=== PATIENT | male | born 1980 ===

== ENCOUNTER 2018-10-04 12:03 | Emergency (ER) | payer OTHER ==
[2018-10-04 12:16] VITALS: PULSE 78; RESP 18; TEMP 99.1; O2SAT 98
--- NOTE | 2018-10-04 13:16 | ED PDOC ---
Arrival/HPI - History of Present Illness Narrative History of Present Illness (Text): 10/04/18 13:11 38M with a PMHx of sebaceous cysts and pilonydal cyst presents with a 6mo hx an enlarging cyst in the xyphoid region. Pt says its been gradually growing but yesterday after hugging a family member it began to hurt. Pt also reports minor redness. ROS: Pos+ pain on palpation, enlarging Neg- fevers, chills, sob, night sweats, vomiting, trauma, skin break 10/04/18 13:16 <Roberth Sharp - Last Filed: 10/04/18 15:29> - General Historian: Patient - History of Present Illness Time/Duration: > month Symptom Course: Worsening Quality: Pressure Activities at Onset: Light Context: Home <Joshua Cordon - Last Filed: 10/08/18 19:26> - General Chief Complaint: Abnormal Skin Integrity Time Seen by Provider: 10/04/18 12:41 Past Medical History - Provider Review Nursing Documentation Reviewed: Yes - Patient History Narrative Patient History: pilonydal cyst sebaceous cyst - Psychiatric Hx Substance Use: No - Surgical History Other/Comment: facial reconstruction - Anesthesia Hx Anesthesia: Yes Hx Anesthesia Reactions: No Hx Malignant Hyperthermia: No <Roberth Sharp - Last Filed: 10/04/18 15:29> Family/Social History Family/Social History: Unknown Family HX Smoking Status: Never Smoked Hx Alcohol Use: Yes Frequency of alcohol use: Socially Hx Substance Use: No <Roberth Sharp - Last Filed: 10/04/18 15:29> - Physician Review Nursing Documentation Reviewed: Yes Family/Social History: No Known Family HX <Joshua Cordon - Last Filed: 10/08/18 19:26> Allergies/Home Meds <Roberth Sharp - Last Filed: 10/04/18 15:29> <Joshua Cordon - Last Filed: 10/08/18 19:26> Allergies/Adverse Reactions: Allergies No Known Allergies Allergy (Verified 10/04/18 12:08) Review of Systems - Physician Review All systems were reviewed & negative as marked: Yes - Review of Systems Constitutional: absent: Fevers, Night Sweats Eyes: absent: Vision Changes Respiratory: absent: SOB Cardiovascular: absent: Chest Pain Gastrointestinal: absent: Abdominal Pain Genitourinary Male: absent: Dysuria, Hematuria Musculoskeletal: absent: Back Pain Skin: Other (cyst, enlarging, painful) Neurological: absent: Headache, Dizziness Endocrine: absent: Diaphoresis <Roberth Sharp - Last Filed: 10/04/18 15:29> Physical Exam Vital Signs Temp Pulse Resp BP Pulse Ox 10/04/18 12:05 99.1 F 78 18 131/89 98 Temperature: Afebrile Blood Pressure: Normal Pulse: Regular Respiratory Rate: Normal Appearance: Positive for: Well-Appearing, Non-Toxic, Comfortable Pain Distress: None Mental Status: Positive for: Alert and Oriented X 3 - Systems Exam Head: Present: Atraumatic, Normocephalic Pupils: Present: PERRL Extroacular Muscles: Present: EOMI, Gaze Palsy Conjunctiva: Present: Normal Mouth: Present: Moist Mucous Membranes Pharnyx: No: ERYTHEMA Respiratory/Chest: Present: Clear to Auscultation. No: Wheezes, Rhonchi Cardiovascular: Present: Regular Rate and Rhythm, Normal S1, S2. No: Murmurs Abdomen: Present: Normal Bowel Sounds. No: Tenderness, Distention Upper Extremity: Present: Normal Inspection, NORMAL PULSES Lower Extremity: Present: Normal Inspection Neurological: Present: GCS=15, CN II-XII Intact Skin: Present: Other (xyphoid region, 5x5cm circular, tender, non fixed, mobile, irregular oblong border palpated on left inferolateral portion ) Psychiatric: Present: Alert, Oriented x 3 <Roberth Sharp - Last Filed: 10/04/18 15:29> Vital Signs Reviewed: Yes Vital Signs Temp Pulse Resp BP Pulse Ox 10/04/18 12:05 99.1 F 78 18 131/89 98 <Joshua Cordon - Last Filed: 10/08/18 19:26> Medical Decision Making ED Course and Treatment: 10/04/18 13:27 f/u soft tissue US - RAD Interpretation Radiology Orders: 10/04/18 13:05 US SOFT TISSUE COMPLETE [US] Routine <Roberth Sharp - Last Filed: 10/04/18 15:29> ED Course and Treatment: 10/04/18 17:20 Patient Seen with Resident: In agreement with resident note which contains more details about the patient. Patient seen and evaluated with resident. Came up with plan and treatment together. Impression: 38 year old male who presents to the emergency department complaining of cyst on his chest. 10/08/18 19:22 i have personally seen and examined by myself. patient presents with a very mildly tender lesion on the anterior mid lower sternum. the lesion had clear borders and clinically had the feel of a cyst. US was done to rule out abscess as the lesion was somewhat tender. US revealed a solid mass. I explained to the patient the extreme importance to have the lesion biopsied. I offered to the patient to have my surgeon on staff to evaluate patient. The patient states he would rather go back home (out of state), and he will see a surgeon there. Patient stated that his insurance only covers emergency visits which was his reluctance to undergo further evaluation. Patient understood and agreed to follow up with surgeon. Copy of US report was given at discharge. - RAD Interpretation Radiology Orders: 10/04/18 13:32 US SOFT TISSUE COMPLETE [US] Stat <Joshua Cordon - Last Filed: 10/08/18 19:26> - Scribe Statement The provider has reviewed the documentation as recorded by the Amairaniibe Jayshree Shaver Provider Scribe Attestation: All medical record entries made by the Scribe were at my direction and personally dictated by me. I have reviewed the chart and agree that the record accurately reflects my personal performance of the history, physical exam, medical decision making, and the department course for this patient. I have also personally directed, reviewed, and agree with the discharge instructions and disposition. <Joshua Cordon - Last Filed: 10/08/18 19:26> Disposition/Present on Arrival - Present on Arrival History of DVT/PE: No History of Uncontrolled Diabetes: No Urinary Catheter: No History of Decub. Ulcer: No History Surgical Site Infection Following: None - Disposition Patient Plan: Discharge <Roberth Sharp - Last Filed: 10/04/18 15:29> - Present on Arrival Any Indicators Present on Arrival: No - Disposition Have Diagnosis and Disposition been Completed?: Yes Disposition Time: 14:56 Patient Plan: Discharge <Joshua Cordon - Last Filed: 10/08/18 19:26> - Disposition Diagnosis: Soft tissue mass Disposition: HOME/ ROUTINE Condition: STABLE Additional Instructions: You must follow up with a surgeon to have the mass evaluated, most likely thr ough removal and biopsy. Return for any new or worsening symptoms. CATHY THOMAS, thank you for letting us take care of you today. Your provider was Dr. Joshua Cordon and you were treated for soft tissue mass. The emergency medical care you received today was directed at your acute symptoms. If you were prescribed any medication, please fill it and take as directed. It may take several days for your symptoms to resolve. Return to the Emergency Department if your symptoms worsen, do not improve, or if you have any other problems. Please contact your doctor or call one of the physicians/clinics you have been referred to that are listed on the Patient Visit Information form that is included in your discharge packet. Bring any paperwork you were given at discharge with you along with any medications you are taking to your follow up visit. Our treatment cannot replace ongoing medical care by a primary care provider outside of the emergency department. Thank you for allowing the [facility] team to be part of your care today. If you had an X-Ray or CT scan: A Radiologist will review the ED reading if any change in treatment is needed we will contact you. If you had a blood, urine, or wound culture: It will take several days for the results, if any change in treatment is needed we will contact you. If you had an STI test: It will take 48 hours for the results. Please call after 1 week if you have not heard back. Prescriptions: Cephalexin [Keflex] 500 mg PO Q6H #28 capsule Referrals: PCP,NO [Primary Care Provider] - Follow up with primary [facility] [Outside] - Follow up with primary Forms: [employer] (Burmese)
--- NOTE | 2018-10-04 14:14 | US ---
Date of service: 10/04/2018 PROCEDURE: Soft tissue ultrasound HISTORY: abscess vs cyst, chest wall COMPARISON: TECHNIQUE: FINDINGS: There is a solid soft tissue mass anterior to the sternum measuring 4.4 x 2.2 x 4.0 cm. The etiology of this mass is uncertain. This is an unusual location for adenopathy. IMPRESSION: Solid mass anterior to the sternum.
[2018-10-04 15:01] VITALS: BP 128/78
== END 2018-10-04 15:11 | disposition home or self-care (01) ==
LOC: ED 12:03
DX: L72.3 Sebaceous cyst (principal)

== ENCOUNTER 2018-10-16 16:54 | Observation (INO) | payer OTHER ==
[2018-10-16 16:58] VITALS: BMI 28.8
--- NOTE | 2018-10-16 17:22 | ED PDOC ---
Arrival/HPI - General Chief Complaint: Abnormal Skin Integrity Time Seen by Provider: 10/16/18 16:58 - History of Present Illness Narrative History of Present Illness (Text): 10/16/18 17:17 38 m with no significant pmhx presents to the ED with an expanding and painful mass on the sternum. Patient was seen in the ED on 10.04.2018 for the same but the mass was smaller, mildly painful. Patient states over the course since last visit the mass has expanded in size, noticed redness around the skin, he attempted to squeeze once day and noticed a foul smelling odor from the purulent discharge. Patient denies fever or chills or any other systemic complaints. Patient was compliant with the antibiotic he was prescribed. Past Medical History - Psychiatric Hx Substance Use: No - Surgical History Other/Comment: facial reconstruction - Anesthesia Hx Anesthesia: Yes Hx Anesthesia Reactions: No Hx Malignant Hyperthermia: No Family/Social History Family/Social History: No Known Family HX Smoking Status: Never Smoked Hx Alcohol Use: Yes Frequency of alcohol use: Socially Hx Substance Use: No Allergies/Home Meds Allergies/Adverse Reactions: Allergies No Known Allergies Allergy (Verified 10/16/18 17:04) Home Medications: Home Meds Medication Instructions Recorded Confirmed No Known Home Med 10/16/18 10/16/18 Review of Systems - Physician Review All systems were reviewed & negative as marked: Yes Physical Exam - Physical Exam Narrative Physical Exam (Text): 10/16/18 17:23 Gen: VS reviewed, alert, well developed, well nourished, nontoxic, mild distress Eye: EOMI, PERRL Neck: no JVD, supple, no adenopathy CV: regular rate, regular rhythm, no rubs,no murmur, S1, S2 Pulm: no distress, clear to auscultation, no wheeze, no rhonchi, breath sounds equal, no rales Chest: there is a large fluctuant mass on the anterior lower sternum which is tender to touch, there is mild redness on the borders of the mass, there is no open skin with drainage at this time Skin: good color, no rash, no cyanosis Psych: responds appropriately to questions, normal affect Neuro: oriented x3, CN2-12 intact grossly, motor intact, sensation intact Vital Signs Temp Pulse Resp BP Pulse Ox 10/16/18 16:56 99.0 F 90 18 169/93 H 98 Medical Decision Making ED Course and Treatment: 10/16/18 17:25 patient presents with expanding mass of the lower sternum, recent US described as a solid mass. patient was referred to general surgeon for potential resection and biopsy but the characteristics of the mass appear to have evolved. 10/16/18 17:15 case discussed with [place], will come to ED for evaluation 10/16/18 19:09 admit accepted to service of dr. sam bucio, patient to go to OR for surgical resection of soft tissue mass which appears to be infected. i feel it is entirely appropriate for in hospital treatment considering that the soft tissue mass is located over the sternum and delay in further treatment may result in sternum infection. 10/16/18 19:11 Disposition/Present on Arrival - Present on Arrival Any Indicators Present on Arrival: No History of DVT/PE: No History of Uncontrolled Diabetes: No Urinary Catheter: No History of Decub. Ulcer: No History Surgical Site Infection Following: None - Disposition Have Diagnosis and Disposition been Completed?: Yes Diagnosis: Soft tissue infection Disposition: HOSPITALIZED Disposition Time: 19:10 Patient Plan: Admission Patient Problems: Current Active Problems Problem Status Onset Soft tissue infection Acute Condition: STABLE Forms: Sik[employer] (Slovak)
--- NOTE | 2018-10-16 18:08 | CP.PCM.CON ---
History of Present Illness - History of Present Illness History of Present Illness: Surgery Consult Note. Dr. Carrington service. 38yo M with no significant PMHx here for evaluation of mid lower sternal mass. Patient states that he has had this mass for approximately 6-8 months and it has gradually gotten larger in size. He states that he did not have any pain initially but as the mass started to grow larger, he started to have pain upon palpation. He came into the ED for evaluation on 10/04/18 as he started to have increased pain and redness to the area. He had an US performed which showed a solid mass approximately 4.4cm x 2cm x 4cm mass. He was discharged home with a 7-day course of keflex 500mg PO q6h with which he was compliant. He states that approximately a week ago, he noted some thick malodorous brown drainage from the site which has since stopped. Today, he noted increased redness and tenderness to the area and came back to the ED for further evaluation. General Surgery Consult was obtained. PMD: In [place] ([id number]) PMHx: Denies PSHx: Denies Family hx: non-contributory Social Hx: Denies Tobacco use; Rare social ETOH use; Denies any illicit drugs. Lives [id number] in [place] NKDA Review of Systems - Review of Systems All systems: reviewed and no additional remarkable complaints except - Constitutional Constitutional: absent: Fever - EENT Eyes: absent: Blurred Vision Past Patient History - Past Social History Smoking Status: Never Smoked - PSYCHIATRIC Hx Substance Use: No - SURGICAL HISTORY Other/Comment: facial reconstruction - ANESTHESIA Hx Anesthesia: Yes Hx Anesthesia Reactions: No Hx Malignant Hyperthermia: No Meds Allergies/Adverse Reactions: Allergies Allergy/AdvReac Type Severity Reaction Status Date / Time No Known Allergies Allergy Verified 10/16/18 17:04 Results - Vital Signs Recent Vital Signs: Last Vital Signs Temp 99.0 F 10/16/18 16:56 Pulse 90 10/16/18 16:56 Resp 18 10/16/18 16:56 BP 169/93 H 10/16/18 16:56 Pulse Ox 98 10/16/18 16:56
--- NOTE | 2018-10-16 18:46 | CP.PCM.HP ---
<Ascencion Marcano - Last Filed: 10/16/18 18:43> History of Present Illness - History of Present Illness History of Present Illness: Surgery H&P Note. Dr. Carrington service. 38yo M with no significant PMHx here for evaluation of mid lower sternal mass. Patient states that he has had this mass for approximately 6-8 months and it has gradually gotten larger in size. He states that he did not have any pain initially but as the mass started to grow larger, he started to have pain upon palpation. He came into the ED for evaluation on 10/04/18 as he started to have increased pain and redness to the area. He had an US performed which showed a solid mass approximately 4.4cm x 2cm x 4cm. He was discharged home with a 7-day course of keflex 500mg PO q6h with which he was compliant. He states that approximately a week ago, he noted some thick malodorous brown drainage from the site which has since stopped. Today, he noted increased redness and tenderness to the area and came back to the ED for further evaluation. He denies any fevers or chills. No N/V/D. No CP/SOB. No Abd pain. No urinary complaints. PMD: In [place] ([id number]) PMHx: Denies PSHx: Denies Family hx: non-contributory Social Hx: Denies Tobacco use; Rare social ETOH use; Denies any illicit drugs. Lives [id number] in [place] NKDA Present on Admission - Present on Admission Any Indicators Present on Admission: No Review of Systems - Review of Systems All systems: reviewed and no additional remarkable complaints except - Constitutional Constitutional: absent: Chills, Fever - EENT Eyes: absent: Blurred Vision, Change in Vision Nose/Mouth/Throat: absent: Epistaxis, Nasal Discharge - Cardiovascular Cardiovascular: absent: Chest Pain, Diaphoresis, Dyspnea - Respiratory Respiratory: absent: Cough, Dyspnea - Gastrointestinal Gastrointestinal: absent: Abdominal Pain, Diarrhea, Nausea, Vomiting - Genitourinary Genitourinary: absent: Dysuria - Musculoskeletal Musculoskeletal: absent: Back Pain, Neck Pain - Integumentary Integumentary: Lesions Additional comments: chest wall lesion - Neurological Neurological: absent: Dizziness - Psychiatric Psychiatric: absent: Anhedonia, Anxiety Past Patient History - Past Medical History & Family History Past Medical History?: No Past Family History: Reviewed and not pertinent - Past Social History Smoking Status: Never Smoked Alcohol: Occasional Drugs: Denies - PSYCHIATRIC Hx Substance Use: No - SURGICAL HISTORY Other/Comment: facial reconstruction - ANESTHESIA Hx Anesthesia: Yes Hx Anesthesia Reactions: No Hx Malignant Hyperthermia: No Meds Allergies/Adverse Reactions: Allergies Allergy/AdvReac Type Severity Reaction Status Date / Time No Known Allergies Allergy Verified 10/16/18 17:04 Physical Exam - Constitutional Appears: Well, Non-toxic, No Acute Distress - Head Exam Head Exam: ATRAUMATIC, NORMAL INSPECTION, NORMOCEPHALIC - Eye Exam Eye Exam: EOMI, Normal appearance. absent: Scleral icterus - ENT Exam ENT Exam: Mucous Membranes Moist - Respiratory Exam Respiratory Exam: NORMAL BREATHING PATTERN. absent: Accessory Muscle Use, Re spiratory Distress - Cardiovascular Exam Cardiovascular Exam: RRR. absent: JVD - GI/Abdominal Exam GI & Abdominal Exam: Soft. absent: Distended, Firm, Guarding, Rebound, Rigid, Tenderness - Extremities Exam Extremities exam: Positive for: normal inspection. Negative for: calf ten derness - Neurological Exam Neurological exam: Alert, Oriented x3 - Psychiatric Exam Psychiatric exam: Normal Affect, Normal Mood - Skin Additional comments: Midline chest wall lesion approximately 5cm x 5cm raised area. With surrounding erythema. No active drainage. +Fluctuance. Tender to palpation. Results - Vital Signs Recent Vital Signs: Last Vital Signs Temp 99.0 F 10/16/18 16:56 Pulse 90 10/16/18 16:56 Resp 18 10/16/18 16:56 BP 169/93 H 10/16/18 16:56 Pulse Ox 98 10/16/18 16:56 Assessment & Plan - Assessment and Plan (Free Text) Assessment: 38yo M with infected chest wall mass Plan: - IV Abx - NPO past midnight - To OR for I&D vs. excision of chest wall mass tomorrow, 10/17/18 - Pain management Further recs as per Dr. Peter Marcano PGY2 surgery <Odalys Carrington - Last Filed: 10/17/18 11:06> Results - Vital Signs Recent Vital Signs: Last Vital Signs Temp 98.4 F 10/17/18 06:00 Pulse 91 H 10/17/18 06:00 Resp 20 10/17/18 06:00 BP 129/81 10/17/18 06:00 Pulse Ox 99 10/17/18 06:00 - Labs Result Diagrams: 10/17/18 06:10 10/16/18 19:19 Labs: Laboratory Results - last 24 hr 10/16/18 10/16/18 10/16/18 19:19 19:19 19:19 WBC 14.9 H RBC 5.03 Hgb 15.4 Hct 43.8 MCV 87.1 MCH 30.6 MCHC 35.2 RDW 12.6 Plt Count 285 MPV 9.5 Gran % 72.5 H Lymph % (Auto) 17.7 L [place] % (Auto) 6.8 H Eos % (Auto) 2.7 Baso % (Auto) 0.3 Gran # 10.79 H Lymph # (Auto) 2.6 [place] # (Auto) 1.0 H Eos # (Auto) 0.4 Baso # (Auto) 0.05 PT 11.4 INR 1.00 APTT 28.0 Sodium 139 Potassium 3.9 Chloride 107 Carbon Dioxide 25 Anion Gap 11 BUN 13 Creatinine 0.7 L Est GFR ( Amer) > 60 Est GFR (Non-Af Amer) > 60 Random Glucose 90 Calcium 9.1 10/17/18 06:10 WBC 16.9 H RBC 4.88 Hgb 14.8 Hct 42.9 MCV 87.9 MCH 30.3 MCHC 34.5 RDW 12.7 Plt Count 282 MPV 10.0 Gran % 74.3 H Lymph % (Auto) 17.0 L [place] % (Auto) 6.0 Eos % (Auto) 2.3 Baso % (Auto) 0.4 Gran # 12.56 H Lymph # (Auto) 2.9 [place] # (Auto) 1.0 H Eos # (Auto) 0.4 Baso # (Auto) 0.07 PT INR APTT Sodium Potassium Chloride Carbon Dioxide Anion Gap BUN Creatinine Est GFR ( Amer) Est GFR (Non-Af Amer) Random Glucose Calcium Assessment & Plan - Assessment and Plan (Free Text) Plan: Patient seen and examined independent of resident staff. Imaging and reports personally reviewed. Agree with above assessment and plan. Chest wall soft tissue infected mass, likely sebaceous cyst. Recommend excision of mass, and drainage of wound under MAC/local anesthesia. Risks and benefits discussed including, bleeding, infection, recurrence, and delayed wound healing. Patient understands these risks and informed consent signed at bedside.
[2018-10-16] MEDS: Clindamycin 600mg/50ml D5W 600 MG/50 ML VIAL IVPB SCH (19:23)
[2018-10-16 19:32] LABS: BASO # 0.05 K/mm3 (0.0-2.0); BASO % 0.3 % (0.0-3.0); BLOOD UREA NITROGEN 13 mg/dL (7-21); CALCIUM 9.1 mg/dL (8.4-10.5); EOS # 0.4 (0.0-0.7); EOS % 2.7 % (1.5-5.0); GFR NON-AFRICAN AMERICAN > 60; GRAN # 10.79 (1.4-6.5); GRAN % 72.5 % (50.0-68.0); HEMOGLOBIN 15.4 g/dL (14.0-18.0); LYMPH # 2.6 (1.2-3.4); LYMPH % 17.7 % (22.0-35.0); MEAN CELL VOLUME 87.1 fl (80.0-105.0); MEAN CORPUSCULAR HEMOGLOBIN 30.6 pg (25.0-35.0); MEAN CORPUSCULAR HGB CONC 35.2 g/dl (31.0-37.0); MEAN PLATELET VOLUME 9.5 fl (7.0-11.0); MONO % 6.8 % (1.0-6.0); RBC 5.03 10^6/uL (3.5-6.1); RED CELL DISTRIBUTION WIDTH 12.6 % (11.5-14.5); WHITE BLOOD COUNT 14.9 10^3/uL (4.5-11.0)
[2018-10-16 19:33] LABS: PROTHROMBIN TIME 11.4 SECONDS (9.4-12.5)
[2018-10-17] MEDS ORDERED: Sodium Chloride 0.9% 1,000 ML IV SCH (05:15)
[2018-10-17] MEDS: Clindamycin 600mg/50ml D5W 600 MG/50 ML VIAL IVPB SCH ×2 (05:49→14:25)
[2018-10-17 06:43] LABS: BASO # 0.07 K/mm3 (0.0-2.0); BASO % 0.4 % (0.0-3.0); EOS # 0.4 (0.0-0.7); EOS % 2.3 % (1.5-5.0); GRAN # 12.56 (1.4-6.5); GRAN % 74.3 % (50.0-68.0); HEMOGLOBIN 14.8 g/dL (14.0-18.0); LYMPH # 2.9 (1.2-3.4); MEAN CELL VOLUME 87.9 fl (80.0-105.0); MEAN CORPUSCULAR HEMOGLOBIN 30.3 pg (25.0-35.0); MEAN CORPUSCULAR HGB CONC 34.5 g/dl (31.0-37.0); RBC 4.88 10^6/uL (3.5-6.1); RED CELL DISTRIBUTION WIDTH 12.7 % (11.5-14.5); WHITE BLOOD COUNT 16.9 10^3/uL (4.5-11.0)
[2018-10-17] MEDS ORDERED: Lidocaine 1% Inj (20ml) ONE (10:57)
[2018-10-17] MEDS ORDERED: Bupivacaine 0.5% 50 ML IJ ONE (10:57)
[2018-10-17] MEDS ORDERED: Bupivacaine 0.25% 50 ML INJ IJ ONE (10:57)
[2018-10-17] MEDS ORDERED: Sodium Chloride 0.9% 10 ML IV ONE (10:58)
[2018-10-17] MEDS ORDERED: Propofol 10 mg/ml Inj (20 ML) ONE ×2 (11:10→11:38)
[2018-10-17] MEDS ORDERED: Midazolam 2 MG/2 ML VIAL ONE (11:11)
[2018-10-17] MEDS ORDERED: Lidocaine 1% w Epi 1:100,000 Inj ONE (11:14)
[2018-10-17] MEDS ORDERED: Lidocaine PF 2% (5 ml) Inj (For Cardiac Arrhy) ONE (11:18)
[2018-10-17 12:03] VITALS: TEMP 98.8
--- NOTE | 2018-10-17 13:46 | PCM.SURG1 ---
Surgeon's Initial Post Op Note - Surgeon's Notes Surgeon: Dr. Carrington Juke Box Servicer: PGY2 Type of Anesthesia: IV Sedation, Local Pre-Operative Diagnosis: Anterior chest wall mass Operative Findings: purulent drainage. for details see op note Post-Operative Diagnosis: Infected sebaceous cyst of anterior chest Operation Performed: Excision of infected sebaceous cyst Specimen/Specimens Removed: 1. Cyst Capsule. 2. Culture of wound Estimated Blood Loss: EBL {In ML}: 3 Post-Op Condition: Good Date of Surgery/Procedure: 10/17/18 Time of Surgery/Procedure: 12:15
[2018-10-17 14:59] VITALS: BP 126/85; PULSE 73; RESP 19; O2SAT 98
--- NOTE | 2018-10-17 15:16 | CP.PCM.DIS ---
Provider - Provider Date of Admission: 10/16/18 19:10 Attending physician: Odalys Carrington MD Time Spent in preparation of Discharge (in minutes): 40 Hospital Course - Lab Results Lab Results: Most Recent Lab Values WBC 16.9 10^3/uL (4.5-11.0) H 10/17/18 06:10 RBC 4.88 10^6/uL (3.5-6.1) 10/17/18 06:10 Hgb 14.8 g/dL (14.0-18.0) 10/17/18 06:10 Hct 42.9 % (42.0-52.0) 10/17/18 06:10 MCV 87.9 fl (80.0-105.0) 10/17/18 06:10 MCH 30.3 pg (25.0-35.0) 10/17/18 06:10 MCHC 34.5 g/dl (31.0-37.0) 10/17/18 06:10 RDW 12.7 % (11.5-14.5) 10/17/18 06:10 Plt Count 282 10^3/uL (120.0-450.0) 10/17/18 06:10 MPV 10.0 fl (7.0-11.0) 10/17/18 06:10 Gran % 74.3 % (50.0-68.0) H 10/17/18 06:10 Lymph % (Auto) 17.0 % (22.0-35.0) L 10/17/18 06:10 Turner % (Auto) 6.0 % (1.0-6.0) 10/17/18 06:10 Eos % (Auto) 2.3 % (1.5-5.0) 10/17/18 06:10 Baso % (Auto) 0.4 % (0.0-3.0) 10/17/18 06:10 Gran # 12.56 (1.4-6.5) H 10/17/18 06:10 Lymph # (Auto) 2.9 (1.2-3.4) 10/17/18 06:10 Turner # (Auto) 1.0 (0.1-0.6) H 10/17/18 06:10 Eos # (Auto) 0.4 (0.0-0.7) 10/17/18 06:10 Baso # (Auto) 0.07 K/mm3 (0.0-2.0) 10/17/18 06:10 PT 11.4 SECONDS (9.4-12.5) 10/16/18 19:19 INR 1.00 10/16/18 19:19 APTT 28.0 Seconds (25.1-36.5) 10/16/18 19:19 Sodium 139 mmol/L (132-148) 10/16/18 19:19 Potassium 3.9 mmol/L (3.6-5.0) 10/16/18 19:19 Chloride 107 mmol/L (98-107) 10/16/18 19:19 Carbon Dioxide 25 mmol/L (21-33) 10/16/18 19:19 Anion Gap 11 (10-20) 10/16/18 19:19 BUN 13 mg/dL (7-21) 10/16/18 19:19 Creatinine 0.7 mg/dl (0.8-1.5) L 10/16/18 19:19 Est GFR ( Amer) > 60 10/16/18 19:19 Est GFR (Non-Af Amer) > 60 10/16/18 19:19 Random Glucose 90 mg/dL (70-110) 10/16/18 19: Calcium 9.1 mg/dL (8.4-10.5) 10/16/18 19:19 - Hospital Course Hospital Course: 38yo M with no significant PMHx here for evaluation of mid lower sternal mass. Patient states that he has had this mass for approximately 6-8 months and it has gradually gotten larger in size. He states that he did not have any pain initially but as the mass started to grow larger, he started to have pain upon palpation. He came into the ED for evaluation on 10/04/18 as he started to have increased pain and redness to the area. He had an US performed which showed a solid mass approximately 4.4cm x 2cm x 4cm. He was discharged home with a 7-day course of keflex 500mg PO q6h with which he was compliant. He states that approximately a week ago, he noted some thick malodorous brown drainage from the site which has since stopped. Today, he noted increased redness and tenderness to the area and came back to the ED for further evaluation. Decision was made to go to the operating room or excision of chest wall infected cyst. Patient had copious amounts of purulent and malodrous drainage from the infected cyst. Patient tolerated procedure well. Now cleared for discharge home with BID packing changes. Details given in discharge packet. Discharge Exam - Head Exam Head Exam: ATRAUMATIC, NORMAL INSPECTION, NORMOCEPHALIC - Eye Exam Eye Exam: EOMI. absent: Scleral icterus - ENT Exam ENT Exam: Mucous Membranes Dry, Mucous Membranes Moist - Respiratory Exam Respiratory Exam: NORMAL BREATHING PATTERN. absent: Accessory Muscle Use, Wheezes, Respiratory Distress Additional comments: anterior abdominal wall dressing C/D/I - Cardiovascular Exam Cardiovascular Exam: +S1, +S2. absent: Bradycardia, Tachycardia - GI/Abdominal Exam GI & Abdominal Exam: Soft. absent: Diminished Bowel Sounds, Distended, Firm, Guarding, Hernia - Extremities Exam Extremities exam: normal inspection - Neurological Exam Neurological exam: Alert, Oriented x3 - Psychiatric Exam Psychiatric exam: Normal Affect - Skin Skin Exam: Intact, Warm Discharge Plan - Discharge Medications Prescriptions: Clindamycin [Cleocin] 300 mg PO Q6H 7 Days cap Ibuprofen [Motrin Tab] 600 mg PO Q6 5 Days tab Sennosides/Docusate Sodium [Colace 2-in-1 Tablet] 1 each PO BID #30 tablet - Follow Up Plan Condition: STABLE Disposition: HOME/ ROUTINE Additional Instructions: Packing Changes 2 times per day for the first 5 days. In the morning remove packing and shower. Allowed to get water into the wound and use soap only on the outside. After shower pat dry the area and use the krillex roll, soak with normal saline and wring saline out well. Then pack wound around the edges. Each day can use less krillex in the packing. Continue to take antibiotics and other meds as prescribed. Follow up in 5 days in office. If fever greater than 100.4 take Tylenol. If fever persists to the the ER Referrals: Odalys Carrington MD [Staff Provider] - 7 Days
--- NOTE | 2018-10-24 11:05 | PCM.OP ---
Operative Report - Operative Report Date of Surgery/Procedure: 10/17/18 Time of Surgery/Procedure: 09:00 Surgeon: Odalys Carrington MD Laborer Brush Clearing: Amanda Herndon DO (PGY 2 resident) Anesthesia/Sedation: See main Pre-Operative Diagnosis: See main Post-Operative Diagnosis: See main Indication for Surgery: See main Operative Findings: See main Procedure/Operation Description: ANESTHESIA: MAC/LMA; 1% lidocaine with epinephrine+ 0.25% marcarine local PREOPERATIVE DIAGNOSIS: infected chest wall cyst POSTOPERATIVE DIAGNOSIS: Infected chest wall sebaceous cyst GROSS FINDINGS: Thick white purulent and foul smelling debris evacuated from chest wall cyst cavity, 60mL or more in total. Cyst wall removed down to anterior fascia. No deeper muscle involvement. INDICATION: The patient is a 38 year old female with chest wall mass and pain and US evidence of solid component mass performed a week earlier on previous ED visit. Now with increased pain and worsening surrounding skin erythema. Details of HPI as documented in patients chart. All potential risks, benefits, and complications of the procedure were discussed with the patient, and informed consent was obtained prior to the operation. PROCEDURE PERFORMED: Incision and drainage (I&D) of chest wall abscess; Excision of sebaceous cyst cavity. DETAILS OF OPERATION: Patient was taken to operating room and placed supine on the operating room table. Arms placed in neutral position on arms boards. SCD boots were placed for DVT prophylaxis. Following successful MAC anesthesia, upper body warmer placed. The hair was shaved from around the operative site on center of chest wall. Area was prepped and draped in sterile fashion. A safety strap was then loosely placed across lower abdomen. Patient received 2 grams of Ancef within 30 minutes prior to incision. A time out was performed prior to incision. 2cm elliptical incsion was made overlying the central portion of wound over max erythema, in a horizontal orientation. Sharp dissection taken down to subcutoueous tissue and immediately encoutered thick foul smelling whitish debris. A culture of the materail was taken and sent off. We continued to express the infected debris from all four sides of wound until completely evacuated. See findings. The wound was then irrigated with saline. Next we excised the cyst wall in circumferential fashion using a combination of blunt and sharp dissection until all cyst wall material was removed and sent off for permanent pathology. The depth extending to the anterior fascion but did not penetrate muscle or deeper to chest wall. The cavity was irrigated with saline and hemostasis achieved. The wound was then packed with moist saline soaked kerlix and dressed with 4x4 gauze and ABD pad, secured with paper tape. Estimated blood loss was minimal. The patient tolerated the procedure well and was sent for recovery in good condition. I was present for the entirety of the operation. Sponge needle, and instrument counts were correct. Estimated Blood Loss: 20mL Complications: none Specimen: Wound culture; Cyst wall Discharge & Condition: See main
== END 2018-10-17 22:07 | disposition home or self-care (01) ==
LOC: ED 16:54 → ERH 19:10 → 5RNO 23:15
PROVIDERS: ADMIT Hospitalist; ATTEND Surgery
DX: L72.3 Sebaceous cyst (principal)
CPT/HCPCS: 11404; 36415; 80048; 85025; 85610; 85730; 87070; 88304; 96365; 99284; G0378; J1885; J2250; J2704; J3010; J7030; J7120